=== PATIENT | male | born 1995 | race Caucasian/White ===

== ENCOUNTER 2020-10-11 16:50 | Emergency (ER) | payer MEDICAID, SELFPAY ==
[2020-10-11] MEDS ORDERED: Lidocaine 2% w/Epinephrine 1:200K 20 ML VIAL ONE (17:13)
[2020-10-11] MEDS ORDERED: Lidocaine 2% PF 5 ML VIAL ONE (17:14)
[2020-10-11] MEDS ORDERED: Amoxicillin/Potassium Clav 875 MG TAB ONE (18:30)
[2020-10-11] MEDS ORDERED: TETANUS, DIPHTHERIA TOX,ADULT (TDVAX) 0.5 ML VIAL IM ONE (18:30)
[2020-10-12 15:49] LABS: Syphilis Antibody Nonreactive (Nonreactive); Syphilis Antibody Index 0.03 S/CO (<1.00 Non-Reactive)
[2020-10-12 16:02] LABS: HBSAB Concentration Less than 8.00 mIU/mL; HBSAg Index 0.24 S/CO (0-0.99); HIV (1/2) Antibody/Antigen Non-Reactive (NonReactive); HIV 1/2 INDEX 0.25 S/CO (<1.00); Hep A IgM AB Non-Reactive (NonReactive); Hep A IgM S/CO 0.17 S/CO (0-0.79); Hep B Core Total Ab Non-Reactive (NonReactive); Hep B Core Total Index 0.08 S/CO (0-0.79); Hep B Surf AB Non-Reactive (NonReactive); Hep B Surf Ag Non-Reactive S/CO (NonReactive); Hep C IgG Ab Non-Reactive (NonReactive); Hep C Index 0.15 S/CO (0-0.79)
== END 2020-10-11 18:45 ==
LOC: BURERS 16:50
DX: S68.620A Partial traumatic transphalangeal amputation of right index finger, initial encounter (principal); Z87.891 Personal history of nicotine dependence; Y04.1XXA Assault by human bite, initial encounter
CPT/HCPCS: 12001; 36415; 86704; 86706; 86709; 86780; 86803; 87340; 87389; 90471; 90714; J2001